=== PATIENT | female | born 1950 | race Caucasian/White ===

== ENCOUNTER 2020-09-04 03:56 | Emergency (ER) | payer OTHER ==
[~2020-09-04] VITALS: Ht 170.2 cm; Wt 90.7 kg
[2020-09-04 03:58] VITALS: BP 151/63
[2020-09-04] MEDS ORDERED: TETANUS-DIPTH-ACEL PERTUSSIS 0.5ML SYR Tdap IM ONE (04:30)
[2020-09-04] MEDS ORDERED: LIDOCAINE 1% HCL (LOCAL ANESTH.) INJ 20ML MDV IJ ONE (05:00)
[2020-09-04] MEDS ORDERED: BACITRACIN TOP OINT 1 UD PKG TOP ONE ×2 (05:15→05:45)
== END 2020-09-04 05:39 | disposition home or self-care (01) ==
LOC: ER 03:56
DX: S51.812A Laceration without foreign body of left forearm, initial encounter (principal); S51.852A Open bite of left forearm, initial encounter; J44.9 Chronic obstructive pulmonary disease, unspecified; W54.0XXA Bitten by dog, initial encounter; Y93.89 Activity, other specified; Y92.89 Other specified places as the place of occurrence of the external cause; Y99.8 Other external cause status
CPT/HCPCS: 12002; 90471; 90715; 99283; J2001

== ENCOUNTER 2024-11-09 20:28 | Emergency (ER) | payer OTHER ==
[~2024-11-09] VITALS: Ht 165.1 cm; Wt 100.0 kg
--- NOTE | 2024-11-09 20:50 | ED.PDOC ---
GI ASSESSMENT HPI Comments 74-year-old female who came to ER for abdominal pain. Patient denies any abdominal surgeries. States for the past few hours, she developed intermittent episodes of dull, aching, right upper quadrant abdominal pain/just below the right ribcage, with right flank pains. Denies any nausea or vomiting or urinary symptoms REVIEW OF SYSTEMS: No fever, no chills, or fatigue HEENT: No sore throat, no earache, no congestion, no neck pain. Cardiac: No chest pain. No palpitations. Lungs: No shortness of breath, no cough. GI: No nausea, no vomiting, no diarrhea, no constipation, (+) abdominal pain : No dysuria, frequency, or urgency. No hematuria. (+) back pain Musculoskeletal: No joint pain , no joint swelling, no extremity edema. Skin: No rash, no itching. Neuro: No headache, no dizziness, no weakness Physical exam General: Awake, alert and oriented. No acute distress. Skin: Skin in warm, dry and intact. Appropriate color for ethnicity. Nailbeds pink with no cyanosis. HEENT: The head is normocephalic and atraumatic. Conjunctivae are clear without exudates or hemorrhage. Sclera is non-icteric. EOM are intact. No signs of nystagmus. Eyelids are normal in appearance without swelling or lesions. Oral mucosa is pink and moist Neck: The neck is supple with normal range of motion. No JVD. Cardiac: Heart rate and rhythm are normal. No murmurs, gallops, or rubs are auscultated. Respiratory: No signs of respiratory distress. Lung sounds are clear in all lobes bilaterally without rales, rhonchi, or wheezes. Abdominal: Abdomen is soft, non-tender without distention. Bowel sounds are present and normoactive in all four quadrants. Extremities: Upper and lower extremities are atraumatic in appearance without deformity or edema. Neurological: The patient is awake, alert and oriented to person, place, and time with normal speech. Speech is clear. There is no facial asymmetry. Psychiatric: Appropriate mood and affect. Good judgement and insight. No visual or auditory hallucinations. Chief Complaint: Abdominal Pain Time Seen by MD: 20:50 Reviewed Notes: Nurses Notes Allergies: Coded Allergies: NO KNOWN ALLERGIES (Unverified , 11/09/24) Information Source: Patient Mode of Arrival: Ambulatory Timing: Hours Duration: Intermittent Past Medical History PAST MEDICAL HISTORY: COPD Surgical History: Denies all surgeries MARINA PORTER History: Denies all MARINA PORTER Hx Family History Family History: Reviewed,noncontributory to illness Social History Smoker: Non-Smoker Alcohol: Denies ETOH Use Drugs: Denies Drug Use Lives In: Home EKG EKG : Pulse Rate (adult): 93 Cardiac Rhythm: NSR Block: RBBB Comments Left anterior fascicular block. No STEMI Was a procedure done? Was a procedure done?: No GI differential Dx Differential Diagnosis: Cholecystitis, Constipation, Diverticular disease, G astritis/PUD, Gastroenteritis, Pancreatitis, UTI, Urolithiasis X-Ray, Labs, Meds, VS Vital Signs Date Time Temp Pulse Resp B/P (MAP) Pulse Ox O2 Delivery O2 Flow Rate FiO2 11/09/24 20:50 93 11/09/24 20:37 93 11/09/24 20:34 98.8 94 18 126/70 93 98.8 Lab Test 11/09/24 22:00 11/09/24 21:06 Range/Units Troponin I High Sensitivity 11 11 </=34 ng/L White Blood Count 16.7 H 4.4-10.8 10^3/uL Red Blood Count 5.29 H 4.0-5.20 10^6/uL Hemoglobin 16.4 H 12.2-16.2 g/dL Hematocrit 49.2 H 36.0-46.0 % Mean Corpuscular Volume 93.0 80.0-100.0 fL Mean Corpuscular Hemoglobin 31.0 28.0-32.0 pg Mean Corpuscular Hemoglobin Concent 33.4 32.0-36.0 g/dL Red Cell Distribution Width 13.8 11.8-14.3 % Platelet Count 261 140-450 10^3/uL Mean Platelet Volume 8.3 6.9-10.8 fL Neutrophils (%) (Auto) 37.0-80.0 % Lymphocytes (%) (Auto) 10.0-50.0 % Monocytes (%) (Auto) 0.0-12.0 % Basophils (%) (Auto) 0.0-2.0 % Neutrophils # (Auto) 1.6-8.6 10 ^3/uL Lymphocytes # (Auto) 0.4-5.4 10 ^3/uL Monocytes # (Auto) 0-1.3 10 ^3/uL Differential Total Cells Counted 100.0 100 Neutrophils % (Manual) 28 L 37.0-80.0 Band Neutrophils % (Manual) 0 Lymphocytes % (Manual) 62 H 10.0-50.0 Monocytes % (Manual) 3 0-12 Eosinophils % (Manual) 1 0-7 Basophils % (Manual) 0 0.0-2.0 Metamyelocytes % (manual) 0 Myelocytes % (Manual) 0 Promyelocytes % (Manual) 0 Blast Cells % (Manual) 0 Reactive Lymphocytes 6 Platelet Estimate Adequate Red Blood Cell Morphology Normal D-Dimer, Quantitative 0.57 H 0.0-0.49 mg/L FEU Sodium Level 143 136-145 mmol/L Potassium Level 4.1 3.5-5.1 mmol/L Chloride Level 109 H 98-107 mmol/L Carbon Dioxide Level 25 20-31 mmol/L Anion Gap 9 5-15 Blood Urea Nitrogen 8 L 9-23 mg/dL Creatinine 0.99 0.550-1.02 mg/dL Glomerular Filtration Rate Calc 60 >90 mL/min BUN/Creatinine Ratio 8.1 L 10.0-20.0 Serum Glucose 114 H 74-106 mg/dL Calcium Level 9.3 8.7-10.4 mg/dL Total Bilirubin 0.3 0.2-1.0 mg/dL Aspartate Amino Transferase (AST) 23 13-40 U/L Alanine Aminotransferase (ALT) 19 7-40 U/L Alkaline Phosphatase 70 46-116 U/L Total Protein 6.9 5.7-8.2 g/dL Albumin 4.2 3.2-4.8 g/dL PROCEDURE(s): CXR1 - CHEST XRAY 1 VIEW REASON: Right chest pain ORDER NUMBER(s): [id number], ACCESSION NUMBER(s): [id number] EXAM: XY CHEST XRAY 1 VIEW CLINICAL HISTORY: Right chest pain TECHNIQUE: Single AP view of the chest WID: COMPARISON: None FINDINGS: Lines and tubes: None Chest: The heart size and pulmonary vasculature is within normal limits. Small mixed opacity in the lateral right mid lung. Linear bibasilar scarring or atelectasis. No pneumothorax or pleural effusion. The osseous structures are grossly intact. Multilevel thoracic spondylosis. IMPRESSION: Small mixed opacity in the lateral right mid lung which could reflect pneumonia. Time of 1ST Reevaluation: 20:47 Reevaluation 1ST: Unchanged Patient Education/Counseling: Need For Follow Up Family Education/Counseling: No Family Present SEPSIS Sepsis Screen Date sepsis recognized/suspect: Nov 09, 2024 Time Sepsis recognized/suspect: 2028 Recent Procedure: No On Antibiotic Therapy: No Respiratory Rate >20: No Heart Rate >90: Yes Temp<36 C (96.8 F) or >38.3 C: No SBP <90 or MAP <65 mmHG: No New Acute Mental Status Change: No Is the patient on CPAP, BIPAP,: No Physician Orders Chest Xray 1 View (11/09/24 20:47) Troponin-I Hs (11/09/24 23:47) Vital Signs Date Time Temp Pulse Resp B/P (MAP) Pulse Ox O2 Delivery O2 Flow Rate FiO2 11/09/24 20:50 93 11/09/24 20:37 93 11/09/24 20:34 98.8 94 18 126/70 93 98.8 Laboratory Tests Test 11/09/24 21:06 White Blood Count 16.7 10^3/uL (4.4-10.8) H Departure 1 Departure Time of Disposition: 00:01 Impression: Primary Impression: Right middle lobe pneumonia Disposition: 01 HOME / SELF CARE / HOMELESS Condition: Stable Additional Instructions: ED DISCHARGE INSTRUCTIONS Instructions: Please read all instructions provided in this packet carefully. Although you have been discharged from the Emergency Department, this does not mean that you have a "clean bill of health". No definitive diagnosis for your s ymptoms has been made today. It is possible that you are in the process of developing a serious illness. This is why you must return to the ED without fail if any new or worsening symptoms (especially if your symptoms include chest pain, trouble breathing, abdominal pain, fever, headache, confusion, trouble seeing, or trouble walking) It is also very important that you see a primary care provider (PCP) within the next 3-5 days to follow up. If you are unable to get an appointment, return to the ED for re-evaluation. SHORTNESS OF BREATH EDUCATION Shortness of breath has many causes. Sometimes conditions such as anxiety can lead to shortness of breath. Some people get mild shortness of breath when they exercise. Trouble breathing also can be a symptom of a serious problem, such as asthma, lung disease, emphysema, heart problems, and pneumonia. If your shortness of breath continues, you may need tests and treatment. Watch for any changes in your breathing and other symptoms. Follow-up care is a augustine part of your treatment and safety. Be sure to make and go to all appointments, and call your doctor if you are having problems. It's also a good idea to know your test results and keep a list of the medicines you take. How can you care for yourself at home? Do not smoke or allow others to smoke around you. If you need help quitting, talk to your doctor about stop-smoking programs and medicines. These can increase your chances of quitting for good. Get plenty of rest and sleep. Take your medicines exactly as prescribed. Call your doctor if you think you are having a problem with your medicine. Find healthy ways to deal with stress. Exercise daily. Get plenty of sleep. Eat regularly and well. When should you call for help? Call 911 anytime you think you may need emergency care. For example, call if: You have severe shortness of breath. You have symptoms of a heart attack. These may include: Chest pain or pressure, or a strange feeling in the chest. Sweating. Shortness of breath. Nausea or vomiting. Pain, pressure, or a strange feeling in the back, neck, jaw, or upper belly or in one or both shoulders or arms. Lightheadedness or sudden weakness. A fast or irregular heartbeat. After you call 911, the power shovel operator may tell you to chew 1 adult-strength or 2 to 4 low-dose aspirin. Wait for an ambulance. Do not try to drive yourself. Call your doctor now or seek immediate medical care if: Your shortness of breath gets worse or you start to wheeze. Wheezing is a high- pitched sound when you breathe. You wake up at night out of breath or have to prop your head up on several pillows to breathe. You are short of breath after only light activity or while at rest. Watch closely for changes in your health, and be sure to contact your doctor if: You do not get better over the next 1 to 2 days. Credits for Shortness of Breath: Care Instructions Current as of: October 27, 2023 Author: [employer] Staff e-Prescriptions Albuterol Sulfate (Albuterol Sulfate) 0.083 % Neb 1 VIAL NEB Q4HPRN PRN for 5 Days, #5 VIAL Prov: ARSEN EM MD 11/10/24 Levofloxacin Hemihydrate (LEVAQUIN 500 MG) 500 Mg Tab 1 TAB PO DAILY, #7 TAB Prov: ARSEN EM MD 11/10/24 Comments MDM: 74-year-old female who presented with cough and right-sided chest pain Workup significant for right middle lobe pneumonia Patient is not hypoxic. No sign of sepsis other than increased WBC count Patient was offered admission for further treatment, observation and evaluation. Discussed risks, benefits and return precautions with the patient. The patient is declined admission and is requesting to be discharged home to follow up with the primary care provider as an outpatient. Patient well-appearing, nontoxic. Advised prompt follow-up with PCP, return to the ED with any new, worsening or concerning symptoms. --------- The following tests were ordered, and results were reviewed by me: (See diagnostic results section) The following test were independently interpreted by me: EKG Additional information was gathered from interviewing the following independent historians: N/A I reviewed and agreed with the following test results read by other providers: Chest x-ray I discussed treatments and results with patient Decision regarding hospitalization or escalation of hospital level of care: Risks and benefits of admission for further treatment of patient's condition was considered however due to patient's stable condition patient will be discharged to follow up closely or return to care for worsening of condition or inability to follow up. Critical Care Note Critical Care Time?: No Stability Stability form required: No Heart Score Heart Score: Heart Score Response (Comments) Value History N/A 0 EKG N/A 0 Age N/A 0 Risk Factors N/A 0 Troponin N/A 0 Total 0 I personally scribed for ARSEN EM MD ([email or web address]) on 11/09/24 at 20:50. Electronically submitted by Iftikhar Stone ([email or web address]). I personally scribed for ARSEN EM MD ([email or web address]) on 11/09/24 at 21:22. Electronically submitted by Iftikhar Stone ([email or web address]). ARSEN EM MD Nov 09, 2024 20:50
--- NOTE | 2024-11-09 21:19 | DVH ---
EXAM: XY CHEST XRAY 1 VIEW CLINICAL HISTORY: Right chest pain TECHNIQUE: Single AP view of the chest WID: COMPARISON: None FINDINGS: Lines and tubes: None Chest: The heart size and pulmonary vasculature is within normal limits. Small mixed opacity in the lateral right mid lung. Linear bibasilar scarring or atelectasis. No pneum othorax or pleural effusion. The osseous structures are grossly intact. Multilevel thoracic spondylosis. IMPRESSION: Small mixed opacity in the lateral right mid lung which could reflect pneumonia.
[2024-11-09 21:32] LABS: Hematocrit 49.2 % (36.0-46.0); Hemoglobin 16.4 g/dL (12.2-16.2); Mean Corpuscular Hemoglobin 31.0 pg (28.0-32.0); Mean Corpuscular Volume 93.0 fL (80.0-100.0)
[2024-11-09 21:44] LABS: Alanine Aminotransferase 19 U/L (7-40); Albumin 4.2 g/dL (3.2-4.8); Alkaline Phosphatase 70 U/L (46-116); Anion Gap 9 (5-15); BUN/Creatinine Ratio 8.1 (10.0-20.0); Blood Urea Nitrogen 8 mg/dL (9-23); Calcium 9.3 mg/dL (8.7-10.4); Carbon Dioxide 25 mmol/L (20-31); Chloride 109 mmol/L (98-107); Glucose 114 mg/dL (74-106); Potassium 4.1 mmol/L (3.5-5.1); Sodium 143 mmol/L (136-145); Total Protein 6.9 g/dL (5.7-8.2)
[2024-11-09 21:45] LABS: Bilirubin, Total 0.3 mg/dL (0.2-1.0)
[2024-11-09 22:20] LABS: Total Cells Counted 100.0 (100)
[2024-11-09 22:21] LABS: RBC Morphology Normal
--- NOTE | 2024-11-09 23:05 | ECG ---
[facility] Test Date: 2024-11-09 Test Time: 20:37:32 Pat Name: ANGELICA PARTIDA Department: ED Room: Gender: F Skills Trainer: DELISA : 1950 Requested By: ARSEN EM Order Number: [id number] Reading MD: Lionel Lynch Measurements Intervals [place] Rate: 93 P: 57 CA: 202 QRS: -59 QRSD: 134 T: 16 QT: 377 QTc: 469 Interpretive Statements Sinus rhythm RBBB and LAFB Probable left ventricular hypertrophy Baseline wander in lead(s) V3 Electronically Signed On 11-13-2024 22:47:03 PDT by Lionel Lynch Please click the below link to view image of tracing.
[2024-11-10] MEDS ORDERED: ALBU0.084 NEB (00:02)
[2024-11-10] MEDS ORDERED: LEVO500T91 PO (00:02)
[2024-11-10 00:34] VITALS: BP 165/92; PULSE 99; RESP 20; TEMP 99.1; O2SAT 90
[2024-11-10] MEDS: levoFLOXacin 250 MG TAB PO ONE (00:34)
== END 2024-11-10 00:36 | disposition home or self-care (01) ==
LOC: MERGE 20:28 → EDBD 20:28 → ER 20:28
DX: J18.1 Lobar pneumonia, unspecified organism (principal); J44.0 Chronic obstructive pulmonary disease with (acute) lower respiratory infection
CPT/HCPCS: 36415; 71045; 80053; 84484; 85007; 85027; 85379; 93005